=== PATIENT | male | born 1995 | race African-American/Black ===

== ENCOUNTER 2019-02-06 03:45 | Inpatient (IN) | payer SELFPAY, OTHER | END 2019-02-08 10:50 | disposition home or self-care (01) | LOC: ICU 03:45 ==

== ENCOUNTER 2019-02-11 09:44 | Emergency (ER) | payer SELFPAY ==
[~2019-02-11] VITALS: Ht 180.3 cm; Wt 127.5 kg
[2019-02-11] MEDS ORDERED: NS IV 1000 ML 1,000 ML IV ONE (10:08)
[2019-02-11] MEDS ORDERED: ACETAMINOPHEN 500 MG TAB (TYLENOL) PO STA (10:08)
[2019-02-11] MEDS ORDERED: KETOROLAC 30 MG/ML VIAL IVP STA (10:11)
[2019-02-11 10:15] LABS: BILIRUBIN,URINE NEGATIVE (NEGATIVE); CLARITY,URINE CLEAR; COLOR,URINE YELLOW; GLUCOSE, URINE (UA) NEGATIVE (NEGATIVE); KETONES,URINE NEGATIVE (NEGATIVE); LEUKOCYTE ESTERASE ,URINE 1+ (NEGATIVE); NITRITE,URINE NEGATIVE (NEGATIVE); PH,URINE 7 (5-9); PROTEIN,URINE NEGATIVE (NEGATIVE); UROBILINOGEN,URINE NORMAL (NORMAL)
--- NOTE | 2019-02-11 10:18 | ED Fall/Injury ---
General Stated Complaint: FALL/MUSCLE SORENESS, LEFT KIDNEY PAIN Source: patient Exam Limitations: no limitations History of Present Illness Date Seen by Provider: Feb 11, 2019 Time Seen by Provider: 10:02 Initial Comments Here with report of fall yesterday and left-sided low back pain and kidney pain. Was seen last week for rhabdomyolysis and discharge. Currently at [facility] for addiction treatment. Patient has been clean now for 12 days. He did not try any Tylenol or ibuprofen because he didn't know if that would be safe after the rhabdo. Denies other injury or concerns. Did not hit his head and did not lose consciousness. Occurred: yesterday Severity: mild Injuries/Pain Location: back Context: slipped Loss of Consciousness: no loss of consciousness Associated Symptoms (Fall): No Chest Pain, No Headache; Muscle Spasms; No Nausea/Vomiting, No Neck Pain, No Shortness of Air, No Trouble Walking Allergies and Home Medications Allergies Coded Allergies: No Known Drug Allergies (Unverified , 02/06/19) Home Medications No Active Prescriptions or Reported Meds Patient Home Medication List Home Medication List Reviewed: Yes Review of Systems Review of Systems Constitutional: see HPI; No chills, No fever Eyes: No Symptoms Reported Ears, Nose, Mouth, Throat: no symptoms reported Respiratory: no symptoms reported Cardiovascular: no symptoms reported Gastrointestinal: see HPI, other (left flank pain) Genitourinary: No decreased output, No dysuria Musculoskeletal: no symptoms reported Skin: no symptoms reported All Other Systems Reviewed Negative Unless Noted: Yes Past Shxdxkl-Yrbobb-Aragya Hx Past Med/Social Hx: Reviewed Nursing Past Med/Soc Hx Patient Social History Alcohol Use: Denies Use Recreational Drug Use: No Smoking Status: Current Everyday Smoker Type Used: Electronic/Vapor Recent Foreign Travel: No Contact w/Someone Who Travel: No Past Medical History Surgeries: No Respiratory: No Cardiac: No Neurological: No Genitourinary: No Gastrointestinal: No Musculoskeletal: No Endocrine: No HEENT: No Cancer: No Psychosocial: No Family Medical History Reviewed Nursing Family Hx No Pertinent Family Hx Physical Exam Vital Signs Vital Signs - First Documented 02/11/19 10:15 Temp 96.8 Pulse 102 Resp 18 B/P (MAP) 127/83 (98) Pulse Ox 100 O2 Delivery Room Air Capillary Refill : Height, Weight, BMI Height: 5'11.00" Weight: 281lbs. 2.0oz. 127.270250yl; 38.9 BMI Method: General Appearance: WD/WN, no apparent distress HEENT: PERRL/EOMI, pharynx normal Neck: full range of motion, supple Cardiovascular: regular rate, rhythm, no murmur Respiratory: lungs clear, normal breath sounds Gastrointestinal: non tender, soft Back: no CVA tenderness, no vertebral tenderness; No vertebral tenderness; other (tender to the left low back area) Extremities: non-tender, normal inspection Neurologic/Psychiatric: alert, oriented x 3 Skin: normal color, warm/dry Gris Coma Score Best Eye Response: (4) Open Spontaneously Best Verbal Response: (5) Oriented Best Motor Response: (6) Obeys Commands Progress/Results/Core Measures Results/Orders Lab Results Laboratory Tests Test 02/11/19 10:00 Range/Units White Blood Count 9.8 4.3-11.0 10^3/uL Red Blood Count 5.24 4.35-5.85 10^6/uL Hemoglobin 15.7 13.3-17.7 G/DL Hematocrit 48 40-54 % Mean Corpuscular Volume 92 80-99 FL Mean Corpuscular Hemoglobin 30 25-34 PG Mean Corpuscular Hemoglobin Concent 33 32-36 G/DL Red Cell Distribution Width 13.8 10.0-14.5 % Platelet Count 284 130-400 10^3/uL Mean Platelet Volume 11.5 H 7.4-10.4 FL Neutrophils (%) (Auto) 56 42-75 % Lymphocytes (%) (Auto) 32 12-44 % Monocytes (%) (Auto) 10 0-12 % Eosinophils (%) (Auto) 2 0-10 % Basophils (%) (Auto) 1 0-10 % Neutrophils # (Auto) 5.5 1.8-7.8 X 10^3 Lymphocytes # (Auto) 3.1 1.0-4.0 X 10^3 Monocytes # (Auto) 1.0 0.0-1.0 X 10^3 Eosinophils # (Auto) 0.2 0.0-0.3 10^3/uL Basophils # (Auto) 0.1 0.0-0.1 10^3/uL Urine Color YELLOW Urine Clarity CLEAR Urine pH 7 5-9 Urine Specific [place] 1.010 L 1.016-1.022 Urine Protein NEGATIVE NEGATIVE Urine Glucose (UA) NEGATIVE NEGATIVE Urine Ketones NEGATIVE NEGATIVE Urine Nitrite NEGATIVE NEGATIVE Urine Bilirubin NEGATIVE NEGATIVE Urine Urobilinogen NORMAL NORMAL MG/DL Urine Leukocyte Esterase 1+ H NEGATIVE Urine RBC (Auto) NEGATIVE NEGATIVE Urine RBC NONE /HPF Urine WBC RARE /HPF Urine Squamous Epithelial Cells RARE /HPF Urine Crystals NONE /LPF Urine Bacteria NEGATIVE /HPF Urine Casts NONE /LPF Urine Mucus NEGATIVE /LPF Urine Culture Indicated NO Sodium Level 141 135-145 MMOL/L Potassium Level 4.3 3.6-5.0 MMOL/L Chloride Level 105 98-107 MMOL/L Carbon Dioxide Level 26 21-32 MMOL/L Anion Gap 10 5-14 MMOL/L Blood Urea Nitrogen 14 7-18 MG/DL Creatinine 1.03 0.60-1.30 MG/DL Estimat Glomerular Filtration Rate > 60 BUN/Creatinine Ratio 14 Glucose Level 72 70-105 MG/DL Calcium Level 9.9 8.5-10.1 MG/DL Corrected Calcium 9.5 8.5-10.1 MG/DL Total Bilirubin 0.3 0.1-1.0 MG/DL Aspartate Amino Transf (AST/SGOT) 37 H 5-34 U/L Alanine Aminotransferase (ALT/SGPT) 74 H 0-55 U/L Alkaline Phosphatase 54 40-136 U/L Total Creatine Kinase 437 H 30-200 U/L Total Protein 7.3 6.4-8.2 GM/DL Albumin 4.5 3.2-4.5 GM/DL My Orders Orders - JAQUELIN JEFFERY MD Cbc With Automated Diff (02/11/19 10:08) Comprehensive Metabolic Panel (02/11/19 10:08) Creatine Kinase (02/11/19 10:08) Ua Culture If Indicated (02/11/19 10:08) Saline Lock/Iv-Start (02/11/19 10:08) Ns Iv 1000 Ml (Sodium Chloride 0.9%) (02/11/19 10:08) Acetaminophen Tablet (Tylenol Tablet) (02/11/19 10:08) Ketorolac Injection (Toradol Injection) (02/11/19 10:11) Medications Given in ED Current Medications Medications Dose Ordered Sig/Kathryn Route Start Time Stop Time Status Last Admin Dose Admin Sodium Chloride 1,000 ml @ 0 mls/hr Q0M ONCE IV 02/11/19 10:08 02/11/19 10:11 DC 02/11/19 10:25 1,000 MLS/HR Vital Signs/I&O 02/11/19 10:15 Temp 96.8 Pulse 102 Resp 18 B/P (MAP) 127/83 (98) Pulse Ox 100 O2 Delivery Room Air Progress Progress Note : Progress Note Seen and evaluated. IV, labs, UA, normal saline 1 L bolus, Tylenol 1 g by mouth and Toradol 30 mg IV ordered. Monitor patient. 1135: No acute findings and overall feels better. Discharged home with return precautions. Patient verbalize understanding instructions and agreement with plan. Departure Impression Primary Impression: Back strain Qualified Codes: S39.012A - Strain of muscle, fascia and tendon of lower back , initial encounter Disposition: HOME, SELF-CARE Condition: Improved Departure-Patient Inst. Decision time for Depature: 11:37 Referrals: NO,LOCAL PHYSICIAN (PCP/Family) Primary Care Physician Patient Instructions: Low Back Pain (DC) Add. Discharge Instructions: You may take Tylenol/acetaminophen 1000 mg every 8 hours as needed for pain. You may take ibuprofen 600 mg every 8 hours as needed for pain. Drink plenty of fluids. Follow-up with your DrBrie in a few days for recheck as needed. Return for worse pain, vomiting, blood in your vomit or stool, breathing problems or other concerns as needed. Scripts No Active Prescriptions or Reported Meds JAQUELIN JEFFERY MD Feb 11, 2019 10:17
[2019-02-11 10:23] LABS: BASOPHILS # (AUTO) 0.1 10^3/uL (0.0-0.1); BASOPHILS % (AUTO) 1 % (0-10); EOSINOPHILS # (AUTO) 0.2 10^3/uL (0.0-0.3); EOSINOPHILS % (AUTO) 2 % (0-10); HEMATOCRIT 48 % (40-54); HEMOGLOBIN 15.7 G/DL (13.3-17.7); LYMPHOCYTES # (AUTO) 3.1 X 10^3 (1.0-4.0); LYMPHOCYTES % (AUTO) 32 % (12-44); MEAN CORPUSCULAR HEMOGLOBIN 30 PG (25-34); MEAN CORPUSCULAR HGB CONC 33 G/DL (32-36); MEAN CORPUSCULAR VOLUME 92 FL (80-99); MEAN PLATELET VOLUME 11.5 FL (7.4-10.4); MONOCYTES % (AUTO) 10 % (0-12); NEUTROPHILS # (AUTO) 5.5 X 10^3 (1.8-7.8); NEUTROPHILS % (AUTO) 56 % (42-75); PLATELET COUNT 284 10^3/uL (130-400); RED CELL DISTRIBUTION WIDTH 13.8 % (10.0-14.5); WHITE BLOOD COUNT 9.8 10^3/uL (4.3-11.0)
[2019-02-11 10:26] LABS: BACTERIA,URINE NEGATIVE /HPF; SQUAMOUS EPITHELIAL CELL,UR RARE /HPF; WBC,URINE RARE /HPF
[2019-02-11 10:34] LABS: ALANINE AMINOTRANSFERASE 74 U/L (0-55); ALBUMIN 4.5 GM/DL (3.2-4.5); ALKALINE PHOSPHATASE 54 U/L (40-136); BILIRUBIN,TOTAL 0.3 MG/DL (0.1-1.0); BUN/CREATININE RATIO 14; CALCIUM 9.9 MG/DL (8.5-10.1); CARBON DIOXIDE 26 MMOL/L (21-32); CHLORIDE 105 MMOL/L (98-107); CREATINE KINASE 437 U/L (30-200); CREATININE SERUM 1.03 MG/DL (0.60-1.30); GFR ESTIMATED > 60; GLUCOSE 72 MG/DL (70-105); POTASSIUM 4.3 MMOL/L (3.6-5.0); SODIUM 141 MMOL/L (135-145); TOTAL PROTEIN 7.3 GM/DL (6.4-8.2)
[2019-02-11 12:12] VITALS: BP 115/74
== END 2019-02-11 12:12 | disposition home or self-care (01) ==
LOC: EDUNIT# 09:44 → ER 09:47
DX: S39.012A Strain of muscle, fascia and tendon of lower back, initial encounter (principal); M62.82 Rhabdomyolysis; F17.290 Nicotine dependence, other tobacco product, uncomplicated; R40.2142 Coma scale, eyes open, spontaneous, at arrival to emergency department; R40.2252 Coma scale, best verbal response, oriented, at arrival to emergency department; R40.2362 Coma scale, best motor response, obeys commands, at arrival to emergency department; W01.0XXA Fall on same level from slipping, tripping and stumbling without subsequent striking against object, initial encounter
CPT/HCPCS: 36415; 80053; 81000; 82550; 85025